=== PATIENT | female | born 1990 | race Two or more races ===

== ENCOUNTER 2019-05-30 14:06 | Emergency (ER) | payer OTHER ==
[~2019-05-30] VITALS: Ht 160 cm; Wt 59.4 kg
== END 2019-05-30 18:27 | disposition home or self-care (01) ==
LOC: ER 14:06
DX: O26.891 Other specified pregnancy related conditions, first trimester (principal); R10.2 Pelvic and perineal pain; Z34.81 Encounter for supervision of other normal pregnancy, first trimester

== ENCOUNTER → 2019-06-20 | Emergency (ER) | payer OTHER ==
[~2019-06-20] VITALS: Ht 157.5 cm; Wt 58.1 kg
[~2019-06-20] MED LIST: KEFLEX500 MG PO
== END | disposition home or self-care (01) ==
LOC: ER 20:27
DX: R30.0 Dysuria (principal); N39.0 Urinary tract infection, site not specified

== ENCOUNTER 2019-06-25 10:17 | Inpatient (IN) | payer OTHER ==
[~2019-06-25] VITALS: Ht 160 cm; Wt 59.0 kg
[2019-06-28] MEDS ORDERED: AMOX1TAB5 PO (15:12)
== END 2019-06-28 16:44 | disposition home or self-care (01) | DRG 833 ==
LOC: ER 10:17 → OB/GYN 17:13
PROVIDERS: ADMIT Obstetrics & Gynecology
PROC: BY4CZZZ Ultrasonography of Second Trimester, Single Fetus (ICD-10-PCS; principal; 2019-06-25)
PROC: BT43ZZZ Ultrasonography of Bilateral Kidneys (ICD-10-PCS; 2019-06-25)
DX: O23.02 Infections of kidney in pregnancy, second trimester (principal); Z34.02 Encounter for supervision of normal first pregnancy, second trimester

== ENCOUNTER 2019-09-11 14:30 | Outpatient (CLI) | payer OTHER ==
[~2019-09-11 14:30] MED LIST changes: -PRENATAL TABLE1 EAC3 PO
[2019-09-11] MEDS ORDERED: PRENATAL TABLE1 EAC3 PO (15:31)
== END 2019-09-12 17:26 | disposition home or self-care (01) ==
LOC: OBS/DEL 14:30
DX: O26.842 Uterine size-date discrepancy, second trimester (principal); O26.892 Other specified pregnancy related conditions, second trimester; O60.02 Preterm labor without delivery, second trimester; O23.42 Unspecified infection of urinary tract in pregnancy, second trimester

== ENCOUNTER → 2019-09-11 | Emergency (ER) | payer OTHER ==
[~2019-09-11] MED LIST changes: +AMOX1TAB5 PO; +PRENATAL TABLE1 EAC3 PO
== END | disposition left against medical advice (07) ==
LOC: ER 11:10
DX: Z53.20 Procedure and treatment not carried out because of patient's decision for unspecified reasons (principal)

== ENCOUNTER 2019-10-09 13:47 | Outpatient (CLI) | payer OTHER ==
[~2019-10-09 13:47] MED LIST changes: +PRENATAL TABLE1 EAC3 PO
== END 2019-10-09 21:49 | disposition home or self-care (01) ==
LOC: OBS/DEL 13:47
DX: O26.893 Other specified pregnancy related conditions, third trimester (principal); R10.2 Pelvic and perineal pain

== ENCOUNTER 2019-11-07 18:02 | Inpatient (IN) | payer OTHER ==
[~2019-11-07] VITALS: Ht 160 cm; Wt 68.0 kg
== END 2019-11-10 14:37 | DRG 786 ==
LOC: OBS/DEL 18:02 → LDR 21:39 → OBS/DEL 21:39 → OB/GYN 23:44
PROVIDERS: Obstetrics & Gynecology; ADMIT Obstetrics & Gynecology
PROC: 4A1HXCZ Monitoring of Products of Conception, Cardiac Rate, External Approach (ICD-10-PCS; 2019-11-07)
PROC: 4A033R1 Measurement of Arterial Saturation, Peripheral, Percutaneous Approach (ICD-10-PCS; 2019-11-07)
PROC: 10D00Z1 Extraction of Products of Conception, Low, Open Approach (ICD-10-PCS; principal; 2019-11-07 22:00)
DX: O76 Abnormality in fetal heart rate and rhythm complicating labor and delivery (principal); O60.14X0 Preterm labor third trimester with preterm delivery third trimester, not applicable or unspecified; Z3A.33 33 weeks gestation of pregnancy; Z37.0 Single live birth